=== PATIENT | female | born 1980 ===

== ENCOUNTER → 2017-11-17 | Outpatient (CLI) | payer OTHER | END | disposition home or self-care (01) | LOC: RX STUDY 09:58 | DX: N97.1 Female infertility of tubal origin (principal) ==

== ENCOUNTER 2018-10-01 08:41 | Emergency (ER) | payer OTHER ==
[~2018-10-01] VITALS: Ht 160 cm; Wt 86.2 kg
== END 2018-10-01 20:16 | disposition home or self-care (01) ==
LOC: ER 08:41
DX: O20.0 Threatened abortion (principal)